=== PATIENT | female | born 1995 | race Caucasian/White ===

== ENCOUNTER 2017-10-13 19:57 | Emergency (ER) | payer OTHER, BC ==
[~2017-10-13] VITALS: Ht 152.4 cm; Wt 49.3 kg
[~2017-10-13 19:57] MED LIST: BCPILLS PO
[2017-10-13 20:03] VITALS: Ht 152.4 cm; Wt 49.3 kg
--- NOTE | 2017-10-13 20:45 | EMERGENCY ROOM VISIT NOTE ---
History First contact with patient: 20:08 Chief Complaint: FALL Stated Complaint: PASSED OUT - HIT NOSE ON SNK - MIGRAINE -SORE NOSE History of Present Illness The patient is a 21 year old female who presents to the Emergency Room via private vehicle with complaints of "passed out, hit nose on sink, migraine, sore nose". 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 She has a history of syncopal events while having bowel movements. This is not new for her. She states unfortunately though this time when she passed out she fell forward striking her nose off of the sink. She has had a headache since the event as well as nose pain. She was seen by [facility] and referred here for a potential CT scan of her head. She denies chance of . She rates the overall pain as a 7/10. She declines pain medication. There has been no nausea or vomiting. She points to the frontal region of her head as a location of pain. Review of Systems A complete 6-point Review of Systems was discussed with the patient, with pertinent positives and negatives listed in the History of Present Illness. All remaining Review of Systems questions can be considered negative unless otherwise specified. Past Medical/Surgical History History of syncope with bowel movements. Family History History of syncope with bowel movements. Social History Smoking Status: Never Smoker Housing Status: lives with family Current/Historical Medications No Active Prescriptions or Reported Meds Physical Exam Vital Signs Date Time Temp Pulse Resp B/P (MAP) Pulse Ox O2 Delivery O2 Flow Rate FiO2 10/13/17 21:23 36.8 90 18 126/90 97 Room Air 10/13/17 20:03 36.8 96 20 125/91 98 Room Air Physical Exam VITAL SIGNS - Vital signs and nursing notes were reviewed. Stable. GENERAL -21-year-old female appearing her stated age who is in no acute distress. Communicates well with provider and answers questions appropriately. SKIN - Without rashes. There is a small abrasion to the bridge of the patient' s nose. The nose is midline. There is no edema noted. Minimal ecchymosis. HEAD - NC/AT. EYES - PERRL with EOMI bilaterally. No hyphema. EARS - No deformities of external structures noted on gross examination bilaterally. No pain elicited with palpation of the tragus bilaterally. External auditory canals without discharge or otorrhea. Tympanic membranes pearly ryan without retraction or bulging. No fluid or purulent material visualized behind the TM. Handle of malleus, umbo, cone of light, pars tensa/ flaccid all easily visualized. No hemotympanum. NOSE - Midline and without cyanosis. No epistaxis or purulent drainage noted. Septum midline without deviation or septal hematoma noted. There is tenderness to the bridge of the nose. MOUTH/OROPHARYNX - Without perioral cyanosis. Buccal mucosa pink and moist and without leukoplakia. Tongue midline with equal elevation of palate bilaterally. No tonsillar hypertrophy, erythema, or exudates noted. Fair dentition noted. No blood in the oropharynx. NECK - Neck with FROM. No C-spine tenderness. LUNGS - Chest wall symmetric without accessory muscle use, intercostals retractions, or central cyanosis. Normal vesicular breath sounds CTA B/L. No wheezes, rales, or rhonchi appreciated. CARDIAC - RRR with S1/S2. No murmur, rubs, or gallops appreciated. EXTREMITIES - +5/5 strength noted in UE/LE bilaterally. NEUROLOGIC - Cranial nerves II through XII grossly intact. Sensory intact to light touch throughout. PSYCH - A&O, and cooperates fully with examiner. Pt is very pleasant and interacts well with examiner. Medical Decision & Procedures ER Provider Diagnostic Interpretation: HEAD CT NONCONTRAST CT DOSE: 1074.96 mGy.cm HISTORY: Fall, syncope. Headache TECHNIQUE: Multiaxial CT images of the head were performed without the use of intravenous contrast. Automated exposure control was utilized for this study. A dose lowering technique was utilized adhering to the principles of ALARA. Comparison: None. Findings: The paranasal sinuses and mastoid air cells are clear. The calvarium and skull base are intact. The ventricles and sulci are within normal limits. There is no mass, hematoma, midline shift, or acute infarct. Impression: No acute intracranial abnormality. Electronically signed by: Babar Brizuela M.D. 10/13/2017 9:07 PM Dictated Date/Time: 10/13/2017 9:04 PM Medical Decision Patient was seen and evaluated as above. She presents to us today referred by [facility] for head trauma. GCS is 15 on exam. She has a small abrasion to the bridge of the nose. There is some nasal tenderness but it is midline and patent. No trouble breathing. CT scan was obtained of the head as this is why she was referred here. This reveals no intracranial abnormality. I suspect she likely has a minor concussion. At this time she'll be discharged to home with conservative management. She was educated upon management, educated upon worrisome symptoms which to return, had questions answered prior to discharge, and was discharged home in good condition. She may follow with an supervisor of research if the nose becomes a problem for her. She was also encouraged to rest. In the evaluation and treatment of this patient, the following differential diagnoses were considered: Concussion, Contrecoup Injury, Brain Tumor, Depression, Encephalitis, Hypothyroidism, Meningitis, CVA, TIA, Migraine, Cluster Headache, Intracranial Abnormality, Intracranial Hemorrhage, Subdural Hematoma, Subarachnoid Hemorrhage, Hydrocephalus. Impression Primary Impression: Closed head injury Additional Impression: Nasal pain Departure Information Dispostion Home / Self-Care Condition GOOD Prescriptions No Active Prescriptions or Reported Meds Referrals No Doctor, Assigned (PCP) Higinio Oconnor M.D. Patient Instructions My [facility] Additional Instructions You have been treated in the Emergency Department for a Closed Head Injury and nasal pain. . CT Scan of your head/brain demonstrated no acute bleeding or other abnormalities. This does not completely rule out the risk for future damage to the brain. At this time you may have a small break in the nose, but there is no misalignment appreciated. The ENT doctor's name is Dr. Oconnor. You may follow with him if he would like. Please call their office. For pain control, you can use the following [id number] medicines (if >12 yo): - Regular strength (325mg/tab) Tylenol (acetaminophen) 2 tabs every 4-6 hours as needed. Do not exceed 12 tablets in a 24 hour period. Avoid taking more than 3 grams (3000 mg) of Tylenol per day. This includes any other sources of acetaminophen you may take on a regular basis. - Regular strength (200 mg/tab) Advil (ibuprofen) 1-2 tabs every 4-6 hours as needed. Do not exceed a dose of 3200 mg per day. You should relax in a quiet, dark place for the rest of the day. Avoid any possible triggers including: cigarette smoke, caffeine, nicotine, chocolate, wine, beer, loud noises or music, or bright lights. You should schedule a follow-up appointment in 2-3 days with your Primary Care Provider or established Neurologist for further evaluation and treatment of your Headache. Return to the Emergency Department if your current symptoms worsen despite treatment course outlined above, or if you develop any of the following symptoms : intractable pain despite aforementioned treatment course, visual disturbances , loss of vision, unilateral weakness or facial drooping, slurring of speech, loss of coordination, or loss of consciousness. Problem Qualifiers
--- NOTE | 2017-10-13 21:09 | DIAGNOSTIC IMAGING REPORT ---
HEAD CT NONCONTRAST CT DOSE: 1074.96 mGy.cm HISTORY: Fall, syncope. Headache TECHNIQUE: Multiaxial CT images of the head were performed without the use of intravenous contrast. Automated exposure control was utilized for this study. A dose lowering technique was utilized adhering to the principles of ALARA. Comparison: None. Findings: The paranasal sinuses and mastoid air cells are clear. The calvarium and skull base are intact. The ventricles and sulci are within normal limits. There is no mass, hematoma, midline shift, or acute infarct. Impression: No acute intracranial abnormality. Electronically signed by: Babar Brizuela M.D. 10/13/2017 9:07 PM Dictated Date/Time: 10/13/2017 9:04 PM
[2017-10-13 21:23] VITALS: BP 126/90; PULSE 90; TEMP 36.8; O2SAT 97
== END 2017-10-13 21:23 | disposition home or self-care (01) ==
LOC: C.EDB 19:58 → C.EDD 21:23
DX: S09.90XA Unspecified injury of head, initial encounter (principal); W18.12XA Fall from or off toilet with subsequent striking against object, initial encounter; Y92.002 Bathroom of unspecified non-institutional (private) residence as the place of occurrence of the external cause; J34.89 Other specified disorders of nose and nasal sinuses; S00.31XA Abrasion of nose, initial encounter; R55 Syncope and collapse